=== PATIENT | female | born 1985 | race Two or more races ===

== ENCOUNTER 2017-12-21 05:05 | Inpatient (IN) | payer SELFPAY ==
[2017-12-21] MEDS ORDERED: MISOPROSTOL 200 MCG TAB PR ×2 (05:30→07:00)
[2017-12-21] MEDS ORDERED: BUTORPHANOL 2 MG INJ IV (05:30)
[2017-12-21] MEDS ORDERED: AMPICILLIN 2 GM/NS (PMX) 100 ML IV (05:30)
[2017-12-21] MEDS ORDERED: IBUPROFEN 600 MG TAB PO (05:30)
[2017-12-21] MEDS ORDERED: CARBOPROST 250 MCG INJ IM ×2 (05:30→07:00)
[2017-12-21] MEDS ORDERED: METHYLERGONOVINE 0.2 MG INJ IM (05:30)
[2017-12-21] MEDS ORDERED: OXYTOCIN 30 UNITS/LR 500 ML IV ×3 (05:30→07:00)
[2017-12-21] MEDS ORDERED: LIDOCAINE 1% (MPF) 30 ML INJ (05:32)
[2017-12-21] MEDS: OXYTOCIN 30 UNITS/LR 500 ML IV ×2 (06:15→10:15)
[2017-12-21] MEDS: LIDOCAINE 1% (MPF) 30 ML INJ INJ (06:16)
[2017-12-21 06:32] LABS: ADD MAN DIFF? NO
[2017-12-21 06:41] LABS: WHITE BLOOD COUNT 8.3 10^3/ul (4.8-10.8)
[2017-12-21 06:41] LABS: BASOPHILS % 0.2 % (0.0-2.0); EOSINOPHILS # 0.1 10^3/ul (0.0-0.5); EOSINOPHILS % 0.8 % (0.0-7.0); HEMATOCRIT 39.8 % (37.0-47.0); HEMOGLOBIN 13.8 g/dl (12.0-16.0); LYMPHOCYTES % 24.2 % (15.0-51.0); MEAN CORPUSCULAR HEMOGLOBIN 30.6 pg (29.0-33.0); MEAN CORPUSCULAR HGB CONC 34.7 g/dl (32.0-37.0); MEAN CORPUSCULAR VOLUME 88.2 fl (82.0-101.0); MEAN PLATELET VOLUME 10.6 fl (7.4-10.4); MONOCYTE # 0.7 10^3/ul (0.3-0.9); MONOCYTES % 8.8 % (0.0-11.0); NEUTROPHIL # 5.5 10^3/ul (1.6-7.5); NEUTROPHILS % 65.5 % (39.0-77.0); PLATELET COUNT 243 10^3/UL (140-415); RED BLOOD COUNT 4.51 10^6/ul (4.20-5.40)
[2017-12-21] MEDS ORDERED: DIPHENHYDRAMINE 25 MG CAP PO (07:00)
[2017-12-21] MEDS ORDERED: ONDANSETRON 4 MG INJ IV (07:00)
[2017-12-21] MEDS ORDERED: DIBUCAINE 1% 30 GM OINT PR (07:00)
[2017-12-21] MEDS ORDERED: SENNA/DOCUSATE NA (8.6MG/50MG) TAB PO (07:00)
[2017-12-21] MEDS ORDERED: ONDANSETRON 4 MG TAB PO (07:00)
[2017-12-21] MEDS ORDERED: DIPHENHYDRAMINE 50 MG INJ IV (07:00)
[2017-12-21] MEDS ORDERED: HYDROCODONE/APAP (5/325) TAB PO (07:00)
[2017-12-21] MEDS ORDERED: NA PHOSPHATE/BIPHOS 133 ML ENEMA PR (07:00)
[2017-12-21] MEDS ORDERED: MAGNESIUM HYDROXIDE 30ML CUP PO (07:00)
[2017-12-21 07:52] LABS: HEPATITIS B SURFACE ANTIGEN NEGATIVE (NEGATIVE)
[2017-12-21 07:57] LABS: INR 0.94; PROTIME 12.7 Sec (11.9-14.9)
[2017-12-21 07:58] LABS: PARTIAL THROMBOPLASTIN TIME 28.4 Sec (25.0-35.0)
[2017-12-21] MEDS: SENNA/DOCUSATE NA (8.6MG/50MG) TAB PO ×2 (09:00→20:46)
[2017-12-21] MEDS: AMPICILLIN 1 GM/NS (PMX) 50 ML IV (09:30)
[2017-12-21 10:27] LABS: HEPATITIS C VIRAL ANTIBODY NEGATIVE (NEGATIVE)
[2017-12-21 10:28] LABS: HIV 1&2 ANTIBODY NEGATIVE (NEGATIVE)
[2017-12-21] MEDS: IBUPROFEN 600 MG TAB PO ×2 (11:21→17:38)
[2017-12-21] MEDS: BENZOCAINE 20% 56 ML SPRAY TOP (11:44)
[2017-12-21] MEDS: WITCH HAZEL/GLYCERIN PAD PR (11:44)
[2017-12-21] MEDS: LANOLIN 7 GM TUBE TOP (11:44)
[2017-12-21] MEDS: HYDROCODONE/APAP (5/325) TAB PO (12:15)
[2017-12-21] MEDS: LACTATED RINGER'S 1,000 ML IV ×2 (13:30)
[2017-12-21] MEDS: LACTATED RINGER'S 1,000 ML IV* ×2 (14:53)
[2017-12-21 16:44] LABS: RAPID PLASMA REAGIN NONREACTIVE (NR)
[2017-12-22] MEDS: IBUPROFEN 600 MG TAB PO ×4 (00:30→17:55)
[2017-12-22] MEDS: SENNA/DOCUSATE NA (8.6MG/50MG) TAB PO (09:04)
[2017-12-22 09:46] LABS: ADD MAN DIFF? NO
[2017-12-22 09:52] LABS: BASOPHILS % 0.1 % (0.0-2.0); EOSINOPHILS # 0.1 10^3/ul (0.0-0.5); EOSINOPHILS % 1.4 % (0.0-7.0); HEMOGLOBIN 12.4 g/dl (12.0-16.0); LYMPHOCYTES % 21.9 % (15.0-51.0); MEAN CORPUSCULAR HGB CONC 34.4 g/dl (32.0-37.0); MEAN PLATELET VOLUME 10.1 fl (7.4-10.4); MONOCYTE # 0.6 10^3/ul (0.3-0.9); MONOCYTES % 6.7 % (0.0-11.0); NEUTROPHIL # 6.4 10^3/ul (1.6-7.5); NEUTROPHILS % 69.6 % (39.0-77.0); PLATELET COUNT 188 10^3/UL (140-415); RED CELL DISTRIBUTION WIDTH 13.2 % (11.5-14.5)
[2017-12-22 09:52] LABS: WHITE BLOOD COUNT 9.3 10^3/ul (4.8-10.8)
[2017-12-23] MEDS ORDERED: DIPHTH/TET/ACEL PERTUSS (ADULT) 0.5 ML VIAL IM* (09:00)
[2017-12-23] MEDS ORDERED: MEASLES,MUMPS,RUBELLA VACCINE INJ SC* (09:00)
[2017-12-23] MEDS ORDERED: VARICELLA VACCINE LIVE/PF 1,350 UNIT/0.5 ML ML SC* (09:00)
== END 2017-12-22 21:00 | disposition home or self-care (01) | DRG 775 ==
LOC: OBT 05:05 → L-D 05:10 → PP1 13:17
PROVIDERS: Specialist
PROC: 10E0XZZ Delivery of Products of Conception, External Approach (ICD-10-PCS; principal; 2017-12-21)
PROC: 0KQM0ZZ Repair Perineum Muscle, Open Approach (ICD-10-PCS; 2017-12-21)
DX: O62.3 Precipitate labor (principal); O70.1 Second degree perineal laceration during delivery; Z37.0 Single live birth; Z3A.40 40 weeks gestation of pregnancy
CPT/HCPCS: 85025; 85610; 85730; 86592; 86703; 86803; 86850; 86900; 86901; 87340; 99464